=== PATIENT | male | born 2000 | race Hispanic/Latino ===

== ENCOUNTER 2020-08-30 06:21 | Emergency (ER) | payer SELFPAY ==
[~2020-08-30] VITALS: Ht 188 cm; Wt 127.0 kg
[2020-08-30 06:24] VITALS: BP 136/74
[2020-08-30] MEDS ORDERED: NEOMY SULF/BACITRA/POLYMYXIN B 1 EACH PACKET TP ONE (08:19)
== END 2020-08-30 09:33 | disposition home or self-care (01) ==
LOC: EDH 06:21
DX: S91.201A Unspecified open wound of right great toe with damage to nail, initial encounter (principal); X58.XXXA Exposure to other specified factors, initial encounter; Y93.89 Activity, other specified; Y92.89 Other specified places as the place of occurrence of the external cause; Y99.8 Other external cause status
CPT/HCPCS: 99282